=== PATIENT | male | born 1955 | race Caucasian/White ===

== ENCOUNTER 2021-09-17 08:22 | Outpatient (CLI) | payer BC | END 2021-09-17 08:23 | disposition home or self-care (01) | LOC: CSHULT 08:22 | PROVIDERS: ATTEND Internal Medicine Gastroenterology | DX: R13.19 Other dysphagia (principal); K21.00 Gastro-esophageal reflux disease with esophagitis, without bleeding; R10.13 Epigastric pain; K80.20 Calculus of gallbladder without cholecystitis without obstruction; K76.9 Liver disease, unspecified | CPT/HCPCS: 76705 ==